=== PATIENT | female | born 1965 | race Caucasian/White ===

== ENCOUNTER 2018-06-12 10:42 | Emergency (ER) | payer MEDICARE, MEDICAID ==
[~2018-06-12] VITALS: Ht 167.6 cm; Wt 67.8 kg
[~2018-06-12 10:42] MED LIST: ALBU18HF2 INH; AMYL1CAP56 PO; CYCL-1 PO; GABA-532 PO; GUAI120015 PO; HYDR-565 PO; ONDA4TAB12 PO
[2018-06-12 10:44] VITALS: BP 130/45
[2018-06-12] MEDS ORDERED: dexamethasone sod phosphate 10mg/ml inj IM STA (10:57)
[2018-06-12] MEDS ORDERED: METH4TAB3 PO (11:00)
[2018-06-12] MEDS ORDERED: diphenhydrAMINE 25mg capsule PO ONE (11:00)
[2018-06-12] MEDS ORDERED: CEPH-571 PO (11:00)
[2018-06-12] MEDS ORDERED: famotidine 20mg tablet PO ONE (11:00)
[2018-06-12] MEDS ORDERED: ketorolac trometh inj. 60 MG/2 ML VIAL IM ONE (11:00)
== END 2018-06-12 12:43 | disposition home or self-care (01) ==
LOC: ER 10:43
DX: S00.86XA Insect bite (nonvenomous) of other part of head, initial encounter (principal); F12.90 Cannabis use, unspecified, uncomplicated; G43.909 Migraine, unspecified, not intractable, without status migrainosus; G89.29 Other chronic pain; Z98.51 Tubal ligation status; Z56.0 Unemployment, unspecified; Z88.1 Allergy status to other antibiotic agents; Z88.0 Allergy status to penicillin; W57.XXXA Bitten or stung by nonvenomous insect and other nonvenomous arthropods, initial encounter; Y93.89 Activity, other specified; Y92.89 Other specified places as the place of occurrence of the external cause; Y99.8 Other external cause status
CPT/HCPCS: 96372; 99284; J1100; J1885; Q0163

== ENCOUNTER 2019-04-24 20:24 | Emergency (ER) | payer MEDICARE, MEDICAID ==
[~2019-04-24] VITALS: Ht 167.6 cm; Wt 69.3 kg
[~2019-04-24 20:24] MED LIST changes: +CEPH-571 PO; +HYDR-4353 PO; -HYDR-565 PO; +METH4TAB3 PO
[2019-04-24 20:30] VITALS: BP 116/63
[2019-04-24] MEDS ORDERED: PERM60CR19 TP (22:03)
[2019-04-24] MEDS ORDERED: CEPH250T PO (22:04)
== END 2019-04-24 22:26 | disposition home or self-care (01) ==
LOC: ER 20:25
DX: B86 Scabies (principal); G43.909 Migraine, unspecified, not intractable, without status migrainosus; G89.29 Other chronic pain; F41.9 Anxiety disorder, unspecified; F12.90 Cannabis use, unspecified, uncomplicated; F10.99 Alcohol use, unspecified with unspecified alcohol-induced disorder; Z87.442 Personal history of urinary calculi; Z98.51 Tubal ligation status; Z98.890 Other specified postprocedural states; Z56.0 Unemployment, unspecified; Z88.1 Allergy status to other antibiotic agents; Z88.0 Allergy status to penicillin; Z79.899 Other long term (current) drug therapy; Y90.9 Presence of alcohol in blood, level not specified
CPT/HCPCS: 99283

== ENCOUNTER 2019-10-07 15:50 | Emergency (ER) | payer MEDICARE, MEDICAID ==
[~2019-10-07] VITALS: Ht 167.6 cm; Wt 69.5 kg
[2019-10-07 16:39] LABS: BASOPHILS # (AUTO) 0.1 X10'3 (0-0.2); BASOPHILS % (AUTO) 0.6 % (0-1); EOSINOPHILS # (AUTO) 0.1 X10'3 (0-0.9); HEMATOCRIT 38.8 % (35.0-45.0); HEMOGLOBIN 13.4 g/dl (12.0-16.0); LYMPHOCYTES # (AUTO) 2.7 X10'3 (1.1-4.8); LYMPHOCYTES % (AUTO) 20.5 % (21-51); MEAN CORPUSCULAR HGB CONC 34.5 g/dL (33.0-36.5); MEAN CORPUSCULAR VOLUME 89.8 FL (78-98); MEAN PLATELET VOLUME 9.8 FL (7.4-10.4); MONOCYTES % (AUTO) 7.6 % (2-12); NEUTROPHILS # (AUTO) 9.3 X10'3 (1.8-7.7); NEUTROPHILS % (AUTO) 70.3 % (42-75); PLATELET COUNT 276 X10'3 (140-440); RED BLOOD COUNT 4.32 X10'6 (4.20-5.60); RED CELL DISTRIBUTION WIDTH 13.4 % (11.5-14.5); WHITE BLOOD COUNT 13.2 X10'3 (4.5-11.0)
[2019-10-07 16:50] LABS: ALANINE AMINOTRANSFERASE 39 U/L (12-78); ALBUMIN 4.3 G/DL (3.4-5.0); ALBUMIN/GLOBULIN RATIO 1.2 (1.1-1.5); ALKALINE PHOSPHATASE 91 IU/L (46-116); ANION GAP 10 (8-16); ASPARTATE AMINO TRANSFERASE 22 U/L (10-37); BILIRUBIN,TOTAL 0.4 MG/DL (0.1-1.0); BLOOD UREA NITROGEN 18 MG/DL (7-18); CALCIUM 9.7 MG/DL (8.5-10.1); CHLORIDE 104 MMOL/L (99-107); CREATININE 0.82 MG/DL (0.40-0.90); GLUCOSE 158 MG/DL (70-104); LIPASE 134 U/L (73-393); POTASSIUM 4.1 MMOL/L (3.5-5.1); SODIUM 145 MMOL/L (135-145); TOTAL CARBON DIOXIDE 30.6 MMOL/L (24-32); TOTAL PROTEIN 7.9 G/DL (6.4-8.2); eGFR 72 ML/MIN
[2019-10-07] MEDS ORDERED: metoclopramide 5 mg/ml inj IV ONE (17:15)
[2019-10-07] MEDS ORDERED: normal saline 1000ML IV soln IVB ONE (17:15)
[2019-10-07] MEDS ORDERED: LORazepam 2 mg/ml vial IV ONE (17:15)
[2019-10-07] MEDS ORDERED: diphenhydrAMINE 50 mg/ml inj IV ONE (17:15)
[2019-10-07 17:41] LABS: URINE HCG NEGATIVE (NEG)
[2019-10-07 17:42] LABS: CLARITY,URINE CLOUDY (Clear); COLOR,URINE YELLOW (Yellow); GLUCOSE, URINE NEGATIVE (Neg); KETONES,URINE NEGATIVE (Neg); LEUKOCYTE ESTERASE ,URINE TRACE (Neg); NITRITES, URINE NEGATIVE (Neg); OCCULT BLOOD,URINE NEGATIVE (Neg); PH,URINE 6.5 (4.8-8.0); PROTEIN,URINE NEGATIVE (Neg); UROBILINOGEN,URINE 0.2 E.U/dL (0.2-1.0)
[2019-10-07 17:43] LABS: UA COLLECTION TYPE CLN CATCH MIDSTREAM
[2019-10-07 17:55] LABS: SQUAMOUS EPITHELIAL CELL,UR MODERATE /LPF (FEW)
[2019-10-07 17:56] LABS: AMORPHOUS PHOSPHATES 2+
[2019-10-07 17:58] LABS: BACTERIA,URINE 1+ /HPF (Neg); FINE GRANULAR CAST 0-3 /LPF (NEGATIVE); MUCUS STRANDS FEW /LPF (Neg); RBC,URINE 0-2 /HPF (0-2); WBC,URINE 0-4 /HPF (0-4)
[2019-10-07] MEDS ORDERED: ketorolac trometh. 30mg/ml inj. IV ONE (18:25)
[2019-10-07] MEDS ORDERED: haloperidol lactate 5mg/ml inj IM ONE (18:55)
[2019-10-07 19:34] LABS: ALANINE AMINOTRANSFERASE 35 U/L (12-78); ALBUMIN 3.9 G/DL (3.4-5.0); ALBUMIN/GLOBULIN RATIO 1.3 (1.1-1.5); ALKALINE PHOSPHATASE 83 IU/L (46-116); ANION GAP 6 (8-16); ASPARTATE AMINO TRANSFERASE 21 U/L (10-37); BILIRUBIN,TOTAL 0.4 MG/DL (0.1-1.0); BLOOD UREA NITROGEN 14 MG/DL (7-18); BUN/CREATININE RATIO 16.1 (6.6-38.0); CALCIUM 9.1 MG/DL (8.5-10.1); CHLORIDE 109 MMOL/L (99-107); CREATININE 0.87 MG/DL (0.40-0.90); GLUCOSE 183 MG/DL (70-104); LIPASE 119 U/L (73-393); POTASSIUM 4.7 MMOL/L (3.5-5.1); SODIUM 143 MMOL/L (135-145); TOTAL CARBON DIOXIDE 28.4 MMOL/L (24-32); eGFR 67 ML/MIN
--- NOTE | 2019-10-07 19:39 | NUR ---
WAITING ON 2ND BOLUS TO INFUSE, READY FOR DC.
[2019-10-07 20:04] VITALS: BP 130/76
== END 2019-10-07 20:06 | disposition home or self-care (01) ==
LOC: ER 15:51
DX: R10.84 Generalized abdominal pain (principal); R11.2 Nausea with vomiting, unspecified; G43.909 Migraine, unspecified, not intractable, without status migrainosus; G89.29 Other chronic pain; F41.9 Anxiety disorder, unspecified; F10.99 Alcohol use, unspecified with unspecified alcohol-induced disorder; F12.90 Cannabis use, unspecified, uncomplicated; Z87.442 Personal history of urinary calculi; Z98.51 Tubal ligation status; Z56.0 Unemployment, unspecified; Z88.1 Allergy status to other antibiotic agents; Z88.0 Allergy status to penicillin; Z79.2 Long term (current) use of antibiotics; Z79.899 Other long term (current) drug therapy; Y90.9 Presence of alcohol in blood, level not specified
CPT/HCPCS: 36415; 80053; 81001; 81025; 83690; 85025; 87088; 96361; 96372; 96374; 96375; 99283; J1200; J1630; J1885; J2060; J2765; J7030

== ENCOUNTER 2020-07-31 07:58 | Emergency (ER) | payer MEDICARE, MEDICAID ==
[~2020-07-31] VITALS: Ht 167.6 cm; Wt 67.0 kg
[2020-07-31 08:34] LABS: BASOPHILS % (AUTO) 0.3 % (0-1); EOSINOPHILS % (AUTO) 0 % (0-6); HEMATOCRIT 38.8 % (35.0-45.0); HEMOGLOBIN 13.1 g/dl (12.0-16.0); LYMPHOCYTES # (AUTO) 1.7 X10'3 (1.1-4.8); LYMPHOCYTES % (AUTO) 13.1 % (21-51); MEAN CORPUSCULAR HEMOGLOBIN 31.2 PG (27.0-31.0); MEAN CORPUSCULAR HGB CONC 33.6 g/dL (33.0-36.5); MEAN CORPUSCULAR VOLUME 92.9 FL (78-98); MEAN PLATELET VOLUME 9.9 FL (7.4-10.4); MONOCYTES # (AUTO) 0.5 X10'3 (0-0.9); NEUTROPHILS % (AUTO) 82.6 % (42-75); PLATELET COUNT 254 X10'3 (140-440); RED BLOOD COUNT 4.18 X10'6 (4.20-5.60); RED CELL DISTRIBUTION WIDTH 13.1 % (11.5-14.5); WHITE BLOOD COUNT 13.3 X10'3 (4.5-11.0)
[2020-07-31 08:49] LABS: CLARITY,URINE CLEAR (Clear); COLOR,URINE YELLOW (Yellow); GLUCOSE, URINE 500 mg/dl (Neg); KETONES,URINE TRACE mg/dl (Neg); LEUKOCYTE ESTERASE ,URINE NEGATIVE (Neg); NITRITES, URINE NEGATIVE (Neg); OCCULT BLOOD,URINE SMALL (Neg); PH,URINE 5.5 (4.8-8.0); PROTEIN,URINE TRACE mg/dl (Neg); UROBILINOGEN,URINE 0.2 E.U/dL (0.2-1.0)
[2020-07-31 08:50] LABS: URINE HCG NEGATIVE (NEG)
[2020-07-31 08:50] LABS: ALANINE AMINOTRANSFERASE 29 U/L (12-78); ALBUMIN 4.3 G/DL (3.4-5.0); ALBUMIN/GLOBULIN RATIO 1.1 (1.1-1.5); ALKALINE PHOSPHATASE 76 IU/L (46-116); ANION GAP 15 (8-16); BILIRUBIN,TOTAL 0.5 MG/DL (0.1-1.0); BLOOD UREA NITROGEN 13 MG/DL (7-18); BUN/CREATININE RATIO 11.6 (6.6-38.0); CALCIUM 9.9 MG/DL (8.5-10.1); CHLORIDE 99 MMOL/L (99-107); CREATININE 1.12 MG/DL (0.40-0.90); GLUCOSE 186 MG/DL (70-104); LIPASE 94 U/L (73-393); POTASSIUM 3.7 MMOL/L (3.5-5.1); SODIUM 138 MMOL/L (135-145); TOTAL CARBON DIOXIDE 24.5 MMOL/L (24-32); TOTAL PROTEIN 8.2 G/DL (6.4-8.2); eGFR 50 ML/MIN
[2020-07-31 08:51] LABS: UA COLLECTION TYPE CLN CATCH MIDSTREAM
[2020-07-31 09:00] LABS: BACTERIA,URINE FEW /HPF (Neg); WBC,URINE 0-4 /HPF (0-4)
[2020-07-31 09:02] LABS: MUCUS STRANDS FEW /LPF (Neg); SQUAMOUS EPITHELIAL CELL,UR MANY /LPF (FEW)
[2020-07-31 09:03] LABS: ASPARTATE AMINO TRANSFERASE 17 U/L (10-37)
[2020-07-31] MEDS ORDERED: proCHLORperazine 10 MG/2 ml inj IM ONE (09:15)
[2020-07-31] MEDS ORDERED: normal saline 1000ML IV soln IVB ONE (09:15)
[2020-07-31] MEDS ORDERED: pantoprazole 40 MG vial IV ONE (09:15)
[2020-07-31] MEDS ORDERED: iohexol 300mg/ml 100ml inj. ONE (09:32)
--- NOTE | 2020-07-31 09:34 | NUR ---
Regina ([facility] – [place]) [phone]
[2020-07-31 10:19] VITALS: BP 99/58
== END 2020-07-31 11:39 | disposition home or self-care (01) ==
LOC: ER 07:59
DX: R10.12 Left upper quadrant pain (principal); R11.2 Nausea with vomiting, unspecified; R19.7 Diarrhea, unspecified; G43.909 Migraine, unspecified, not intractable, without status migrainosus; G89.29 Other chronic pain; F41.9 Anxiety disorder, unspecified; F12.90 Cannabis use, unspecified, uncomplicated; Z98.51 Tubal ligation status; Z98.890 Other specified postprocedural states; Z72.89 Other problems related to lifestyle; Z56.0 Unemployment, unspecified; Z88.0 Allergy status to penicillin; Z79.2 Long term (current) use of antibiotics; Z79.899 Other long term (current) drug therapy
CPT/HCPCS: 36415; 74177; 80053; 81001; 81025; 83690; 85025; 96361; 96372; 96374; 99285; C9113; J0780; J7030; Q9967; 99284

== ENCOUNTER 2023-04-24 11:32 | Day surgery (SDC) | payer MEDICARE, MEDICAID ==
[2023-04-20 10:08] LABS: BASOPHILS # (AUTO) 0.1 X10'3 (0-0.2); BASOPHILS % (AUTO) 0.7 % (0-1); EOSINOPHILS # (AUTO) 0.2 X10'3 (0-0.9); EOSINOPHILS % (AUTO) 2.9 % (0-6); HEMATOCRIT 44.9 % (35.0-45.0); HEMOGLOBIN 15.4 g/dl (12.0-16.0); LYMPHOCYTES # (AUTO) 2.5 X10'3 (1.1-4.8); LYMPHOCYTES % (AUTO) 28.9 % (21-51); MEAN CORPUSCULAR HEMOGLOBIN 31.5 PG (27.0-31.0); MEAN CORPUSCULAR HGB CONC 34.2 g/dL (33.0-36.5); MEAN PLATELET VOLUME 9.6 FL (7.4-10.4); MONOCYTES # (AUTO) 0.6 X10'3 (0-0.9); MONOCYTES % (AUTO) 6.8 % (2-12); NEUTROPHILS # (AUTO) 5.2 X10'3 (1.8-7.7); NEUTROPHILS % (AUTO) 60.7 % (42-75); PLATELET COUNT 229 X10'3 (140-440); RED BLOOD COUNT 4.88 X10'6 (4.20-5.60); RED CELL DISTRIBUTION WIDTH 13.5 % (11.5-14.5); WHITE BLOOD COUNT 8.5 X10'3 (4.5-11.0)
[2023-04-20 10:22] LABS: APTT 27 SECONDS (22-32)
[2023-04-20 10:23] LABS: ALBUMIN 4.2 G/DL (3.4-5.0); ANION GAP 8 (8-16); BLOOD UREA NITROGEN 11 MG/DL (7-18); BUN/CREATININE RATIO 13.3 (10.0-20.0); CALCIUM 9.7 MG/DL (8.5-10.1); CHLORIDE 105 MMOL/L (99-107); CHOL/HDL RATIO 6.7 (0.00-4.99); CHOLESTEROL 222 MG/DL (0-200); CREATININE 0.83 MG/DL (0.40-0.90); GLUCOSE 118 MG/DL (70-104); HDL CHOLESTEROL 33 MG/DL (35-60); LDL CHOLESTEROL 136 MG/DL (50-100); POTASSIUM 4.2 MMOL/L (3.5-5.1); SODIUM 141 MMOL/L (135-145); TOTAL CARBON DIOXIDE 28.4 MMOL/L (24-32); TRIGLYCERIDES 181 MG/DL (20-135); eGFR 70 ML/MIN
[~2023-04-24] VITALS: Ht 167.6 cm; Wt 67.1 kg
[2023-04-24] VITALS (7 sets, daily range): BP systolic 88–113; BP diastolic 52–71; PULSE 48–66; RESP 16; TEMP 97.8; O2SAT 92–97
[2023-04-24] MEDS ORDERED: normal saline 1,000 ML IV SCH (11:50)
[2023-04-24] MEDS ORDERED: LORazepam 0.5 MG tablet PO PRN (11:50)
[2023-04-24] MEDS ORDERED: diphenhydrAMINE 25mg capsule PO PRN (11:50)
[2023-04-24] MEDS ORDERED: fentaNYL/PF 50MCG/1 ML 2ML syringe ONE (12:12)
[2023-04-24] MEDS ORDERED: verapamil 2.5 mg/ml inj IV ONE (12:12)
[2023-04-24] MEDS ORDERED: LIDOcaine 1% (10mg/ml) 2ml vial ONE (12:12)
[2023-04-24] MEDS ORDERED: nitroGLYCERIN-Tridil 50MG/D5W 250 ML IV ONE (12:12)
[2023-04-24] MEDS ORDERED: midazolam 1 mg/ML 2ml injection ONE (12:12)
[2023-04-24] MEDS ORDERED: IBUP-1984 PO (12:13)
[2023-04-24] MEDS ORDERED: heparin 1,000unit/ml 10ml vial 10 ML ONE (12:13)
[2023-04-24] MEDS ORDERED: iohexol 300mg/ml 100ml inj. ONE (12:13)
[2023-04-24] MEDS ORDERED: SPIR25TA5 PO (12:13)
[2023-04-24] MEDS ORDERED: EMPA10TA PO (12:13)
[2023-04-24] MEDS ORDERED: SACU1TAB PO (12:13)
[2023-04-24] MEDS ORDERED: LIDOcaine 1% (10mg/ml)w/preservative inj. 20ml MDV ONE (13:41)
[2023-04-24] MEDS ORDERED: hydrocortisone sod succ/PF 100mg/2ml inj. ONE (13:56)
[2023-04-24] MEDS ORDERED: diphenhydrAMINE 50 mg/ml inj ONE (14:01)
[2023-04-24] MEDS ORDERED: ondansetron/PF 4mg/2ml inj ONE (14:04)
[2023-04-24] MEDS ORDERED: metoprolol tartrate 1mg/ml inj IV ONE (14:05)
[2023-04-24 14:40] LABS: ISTAT HGB ART 11.9 g/dl (12.0-16.0); ISTAT Hct ART 35 %PCV (35-45); ISTAT O2 SATURATION ARTERIAL 85 % (95-98); ISTAT SOURCE ART
[2023-04-24 14:44] LABS: ISTAT Hct MIX 39 %PCV (35-45); ISTAT O2 SATURATION MIX VENOUS 63 % (60-80); ISTAT SOURCE BLNK
[2023-04-24] MEDS ORDERED: HYDROcodone/acetaminophen 5mg/325mg tablet PO PRN (15:00)
[2023-04-24] MEDS ORDERED: HYDROcodone/acetaminophen 10/325mg tab PO PRN (15:00)
== END 2023-04-24 16:15 | disposition home or self-care (01) ==
LOC: SSTAY O 11:32
PROVIDERS: ATTEND Student in an Organized Health Care Education/Training Program
DX: I11.0 Hypertensive heart disease with heart failure (principal); I50.22 Chronic systolic (congestive) heart failure; K31.84 Gastroparesis; E78.5 Hyperlipidemia, unspecified; Z88.0 Allergy status to penicillin; Z88.1 Allergy status to other antibiotic agents; Z79.899 Other long term (current) drug therapy
CPT/HCPCS: 36415; 80048; 80061; 82803; 85014; 85025; 85610; 85730; 93005; 93460; 99152; 99153; J1200; J1644; J1720; J2250; J2405; J3010; J3490; J7030; Q0163; Q9967; A6258; A6402; C1751; C1894

== ENCOUNTER 2024-01-19 11:56 | Emergency (ER) | payer MEDICARE, MEDICAID ==
[~2024-01-19] VITALS: Ht 162.6 cm; Wt 66.0 kg
[~2024-01-19 11:56] MED LIST changes: -ALBU18HF2 INH; -AMYL1CAP56 PO; -CEPH-571 PO; -CYCL-1 PO; +EMPA10TA PO; -GABA-532 PO; -GUAI120015 PO; -HYDR-4353 PO; +IBUP-1984 PO; -METH4TAB3 PO; -ONDA4TAB12 PO; +SACU1TAB PO; +SPIR25TA5 PO
[2024-01-19 12:28] VITALS: BP 151/77; PULSE 79; RESP 18; TEMP 98; O2SAT 97
[2024-01-19] MEDS ORDERED: NAPR-56 PO (12:33)
[2024-01-19] MEDS ORDERED: DOXY-1 PO (12:33)
== END 2024-01-19 13:16 | disposition home or self-care (01) ==
LOC: ER 11:57
DX: K04.7 Periapical abscess without sinus (principal); Z88.0 Allergy status to penicillin; Z88.8 Allergy status to other drugs, medicaments and biological substances; G43.909 Migraine, unspecified, not intractable, without status migrainosus; G89.29 Other chronic pain; F41.9 Anxiety disorder, unspecified; Z98.51 Tubal ligation status; F12.90 Cannabis use, unspecified, uncomplicated
CPT/HCPCS: 99283

== ENCOUNTER 2024-12-15 15:49 | Emergency (ER) | payer MEDICARE, MEDICAID ==
[~2024-12-15] VITALS: Ht 167.6 cm; Wt 68.2 kg
[2024-12-15 16:21] VITALS: BP 144/90; PULSE 85; RESP 15; TEMP 98.9; O2SAT 98
[2024-12-15 17:17] LABS: BASOPHILS # (AUTO) 0.1 X10'3 (0-0.2); BASOPHILS % (AUTO) 0.9 % (0-1); EOSINOPHILS # (AUTO) 0.1 X10'3 (0-0.9); EOSINOPHILS % (AUTO) 1.1 % (0-6); HEMATOCRIT 33.4 % (35.0-45.0); HEMOGLOBIN 11.6 g/dl (12.0-16.0); LYMPHOCYTES # (AUTO) 2.1 X10'3 (1.1-4.8); LYMPHOCYTES % (AUTO) 24.3 % (21-51); MEAN CORPUSCULAR HEMOGLOBIN 31.3 PG (27.0-31.0); MEAN CORPUSCULAR HGB CONC 34.7 g/dL (33.0-36.5); MEAN CORPUSCULAR VOLUME 90.2 FL (78-98); MEAN PLATELET VOLUME 9.1 FL (7.4-10.4); MONOCYTES # (AUTO) 0.6 X10'3 (0-0.9); MONOCYTES % (AUTO) 6.7 % (2-12); NEUTROPHILS # (AUTO) 5.9 X10'3 (1.8-7.7); PLATELET COUNT 333 X10'3 (140-440); RED CELL DISTRIBUTION WIDTH 13.2 % (11.5-14.5); WHITE BLOOD COUNT 8.8 X10'3 (4.5-11.0)
[2024-12-15 17:29] LABS: ALANINE AMINOTRANSFERASE 20 U/L (12-78); ALBUMIN 3.4 G/DL (3.4-5.0); ALBUMIN/GLOBULIN RATIO 0.7 (1.1-1.5); ALKALINE PHOSPHATASE 92 IU/L (46-116); ANION GAP 8 (8-16); ASPARTATE AMINO TRANSFERASE 13 U/L (10-37); BILIRUBIN,TOTAL 0.3 MG/DL (0.1-1.0); BLOOD UREA NITROGEN 11 MG/DL (7-18); BUN/CREATININE RATIO 15.7 (10.0-20.0); CALCIUM 9.4 MG/DL (8.5-10.1); CHLORIDE 101 MMOL/L (99-107); GLUCOSE 243 MG/DL (70-104); LIPASE 25 U/L (16-77); POTASSIUM 4.1 MMOL/L (3.5-5.1); SODIUM 138 MMOL/L (135-145); TOTAL CARBON DIOXIDE 28.7 MMOL/L (24-32); eCRCL 79 ML/MIN; eGFR 85 ML/MIN
== END 2024-12-15 20:59 | disposition left against medical advice (07) ==
LOC: ER 15:49
DX: R11.2 Nausea with vomiting, unspecified (principal); R10.84 Generalized abdominal pain; Z53.21 Procedure and treatment not carried out due to patient leaving prior to being seen by health care provider; Z88.0 Allergy status to penicillin; Z88.1 Allergy status to other antibiotic agents
CPT/HCPCS: 36415; 80053; 83690; 85025

== ENCOUNTER 2025-01-06 22:05 | Emergency (ER) | payer MEDICARE, MEDICAID ==
[~2025-01-06] VITALS: Ht 167.6 cm; Wt 61.4 kg
[2025-01-06 22:40] LABS: BASOPHILS # (AUTO) 0.1 X10'3 (0-0.2); BASOPHILS % (AUTO) 1.1 % (0-1); EOSINOPHILS # (AUTO) 0.3 X10'3 (0-0.9); EOSINOPHILS % (AUTO) 4.3 % (0-6); HEMATOCRIT 34.5 % (35.0-45.0); LYMPHOCYTES # (AUTO) 2.5 X10'3 (1.1-4.8); LYMPHOCYTES % (AUTO) 32.1 % (21-51); MEAN CORPUSCULAR HEMOGLOBIN 30.8 PG (27.0-31.0); MEAN CORPUSCULAR HGB CONC 34.9 g/dL (33.0-36.5); MEAN CORPUSCULAR VOLUME 88.2 FL (78-98); MONOCYTES # (AUTO) 0.7 X10'3 (0-0.9); MONOCYTES % (AUTO) 9.2 % (2-12); NEUTROPHILS # (AUTO) 4.2 X10'3 (1.8-7.7); NEUTROPHILS % (AUTO) 53.3 % (42-75); PLATELET COUNT 261 X10'3 (140-440); RED BLOOD COUNT 3.91 X10'6 (4.20-5.60); RED CELL DISTRIBUTION WIDTH 13.1 % (11.5-14.5); WHITE BLOOD COUNT 7.9 X10'3 (4.5-11.0)
[2025-01-06 22:42] VITALS: TEMP 98.4
[2025-01-06 22:55] LABS: ALANINE AMINOTRANSFERASE 19 U/L (12-78); ALBUMIN 3.4 G/DL (3.4-5.0); ALBUMIN/GLOBULIN RATIO 1.3 (1.1-1.5); ALKALINE PHOSPHATASE 111 IU/L (46-116); ANION GAP 12 (8-16); ASPARTATE AMINO TRANSFERASE 9 U/L (10-37); BILIRUBIN,TOTAL 0.3 MG/DL (0.1-1.0); BLOOD UREA NITROGEN 18 MG/DL (7-18); BUN/CREATININE RATIO 31.6 (10.0-20.0); CALCIUM 8.5 MG/DL (8.5-10.1); CHLORIDE 99 MMOL/L (99-107); CREATININE 0.57 MG/DL (0.40-0.90); LIPASE 100 U/L (16-77); SODIUM 132 MMOL/L (135-145); TOTAL CARBON DIOXIDE 21.5 MMOL/L (24-32); eCRCL 97 ML/MIN; eGFR > 90 ML/MIN
[2025-01-06 23:11] LABS: URINE HCG NEGATIVE (NEG)
[2025-01-06 23:17] LABS: BILIRUBIN,URINE NEGATIVE (Neg); CLARITY,URINE CLEAR (Clear); COLOR,URINE YELLOW (Yellow); GLUCOSE, URINE >=1000 mg/dl (Neg); KETONES,URINE 40 mg/dl (Neg); LEUKOCYTE ESTERASE ,URINE NEGATIVE (Neg); NITRITES, URINE NEGATIVE (Neg); OCCULT BLOOD,URINE TRACE-INTACT (Neg); PH,URINE 5.5 (4.8-8.0); PROTEIN,URINE NEGATIVE (Neg); UROBILINOGEN,URINE 0.2 E.U/dL (0.2-1.0)
[2025-01-06 23:18] LABS: UA COLLECTION TYPE CLN CATCH MIDSTREAM
[2025-01-06 23:23] LABS: GLUCOSE 421 MG/DL (70-104)
[2025-01-06 23:28] LABS: BACTERIA,URINE FEW /HPF (Neg); RBC,URINE 0-2 /HPF (0-2); SQUAMOUS EPITHELIAL CELL,UR FEW /LPF (FEW); WBC,URINE 0-4 /HPF (0-4)
[2025-01-06] MEDS: proCHLORperazine 10 MG/2 ml inj IV ONE (23:41)
[2025-01-06] MEDS: morphine 4 MG/ML inj SYRINge IV ONE (23:41)
[2025-01-06] MEDS: normal saline 1000ML IV soln IVB ONE (23:42)
[2025-01-07 03:56] VITALS: BP 103/69; PULSE 78; RESP 18; O2SAT 96
== END 2025-01-07 03:57 | disposition home or self-care (01) ==
LOC: ER 22:06
DX: K85.90 Acute pancreatitis without necrosis or infection, unspecified (principal); F41.9 Anxiety disorder, unspecified; G43.909 Migraine, unspecified, not intractable, without status migrainosus; F12.90 Cannabis use, unspecified, uncomplicated; Z87.440 Personal history of urinary (tract) infections; Z88.0 Allergy status to penicillin; Z88.1 Allergy status to other antibiotic agents; Z88.8 Allergy status to other drugs, medicaments and biological substances; Z91.041 Radiographic dye allergy status; Z98.51 Tubal ligation status
CPT/HCPCS: 36415; 74176; 80053; 81001; 81025; 82948; 83690; 84145; 84484; 85025; 86885; 86900; 86901; 93005; 96361; 96374; 96375; 99285; J0780; J2270; J7030